=== PATIENT | female | born 1990 | race Caucasian/White ===

== ENCOUNTER → 2020-04-07 | Outpatient (CLI) | payer OTHER ==
--- NOTE | 2020-04-07 13:13 | XR ---
EXAMINATION TYPE: XR chest 2V DATE OF EXAM: 04/07/2020 COMPARISON: NONE HISTORY: Asthma and nicotine dependence. Shortness of breath. TECHNIQUE: Frontal and lateral views of the chest are obtained. FINDINGS: There is no focal air space opacity, pleural effusion, or pneumothorax seen. The cardiac silhouette size is within normal limits. The osseous structures are intact. IMPRESSION: No acute cardiopulmonary process.
== END | disposition home or self-care (01) ==
LOC: RADXRMAIN 12:54
PROVIDERS: ATTEND Internal Medicine Pulmonary Disease
DX: J45.909 Unspecified asthma, uncomplicated (principal); F17.210 Nicotine dependence, cigarettes, uncomplicated
CPT/HCPCS: 71046

== ENCOUNTER 2024-05-14 13:59 | Emergency (ER) | payer OTHER ==
--- NOTE | 2024-05-14 14:48 | ED ---
Back Pain HPI - General Source: patient, RN notes reviewed Limitations: no limitations <Nel Callejas - Last Filed: 05/14/24 14:47> - General Source: RN notes reviewed <Tessa Espinoza - Last Filed: 05/14/24 16:57> - General Chief Complaint: Back Pain/Injury Stated Complaint: L hip/back/leg pain Time Seen by Provider: 05/14/24 14:48 - History of Present Illness Initial Comments: Quick note: 33-year-old female presented to ER with a chief complaint of left- sided back pain. She states last night she started to experience a sharp/stabbing consistent pain. She does report radiation to her left lower extremity. No known injuries or traumas. (Nel Callejas) 33-year-old female presenting to the ER with chief complaint of low back pain x 3 days. Patient describes pain as crampy pain in the middle of the lower back that radiates to the left back and down her leg. Denies trauma or injuries. Denies bowel or bladder disturbances. Denies chance of . Denies IV drug use. Denies fevers, chills, vomiting. She has never had this before. She has been taking ibuprofen at home with little relief. She is having pain with weightbearing. (Tessa Espinoza) - Related Data Previous Rx's Medication Instructions Recorded Lidocaine 5% Patch [Lidoderm 5% 1 patch TOPICAL DAILY 7 Days #7 05/14/24 Patch] patch Allergies Allergy/AdvReac Type Severity Reaction Status Date / Time No Known Allergies Allergy Verified 05/14/24 14:03 Review of Systems ROS Other: All systems not noted in ROS Statement are negative. <Nel Callejas - Last Filed: 05/14/24 14:47> ROS Other: All systems not noted in ROS Statement are negative. <Tessa Espinoza - Last Filed: 05/14/24 16:57> ROS Statement: Those systems with pertinent positive or pertinent negative responses have been documented in the HPI. Past Medical History Past Medical History: Asthma History of Any Multi-Drug Resistant Organisms: None Reported Past Surgical History: Adenoidectomy, Tonsillectomy Past Psychological History: No Psychological Hx Reported Smoking Status: Current every day smoker Past Alcohol Use History: Occasional Past Drug Use History: Marijuana <Nel Callejas - Last Filed: 05/14/24 14:47> General Exam Limitations: no limitations <Nel Callejas - Last Filed: 05/14/24 14:47> General appearance: alert, in no apparent distress Head exam: Present: atraumatic, normocephalic, normal inspection GI/Abdominal exam: Present: soft, normal bowel sounds. Absent: distended, tenderness, guarding, rebound, rigid Back exam: Present: normal inspection, full ROM, tenderness (Left-sided paraspinal tenderness in lumbar portion of spine), other (Full range of motion and strength in bilateral hips. Pain with left-sided flexion of hip. No saddle anesthesia. Full sensation and DP pulses bilaterally). Absent: CVA tenderness (R), CVA tenderness (L), rash noted Neurological exam: Present: alert, oriented X3 Psychiatric exam: Present: normal affect, normal mood Skin exam: Present: warm, dry, intact, normal color. Absent: rash <Tessa Espinoza - Last Filed: 05/14/24 16:57> - General Exam Comments Initial Comments: Visual Physical Exam Vital signs reviewed General: Well-appearing, nontoxic, no acute distress. Head: Normocephalic, atraumatic Eyes: PERRLA, EOMI ENT: Airway patent Chest: Nonlabored breathing Skin: No visual rash, normal skin tone Neuro: Alert and oriented 3 Musculoskeletal: No gross abnormalities (Nel Callejas) Course Vital Signs 05/14/24 14:01 Temperature 97.9 F Pulse Rate 96 Respiratory 20 Rate Blood Pressure 125/80 O2 Sat by Pulse 96 Oximetry Medical Decision Making <Nel Callejas - Last Filed: 05/14/24 14:47> <Tessa Espinoza - Last Filed: 05/14/24 16:57> - Medical Decision Making I performed the quick note portion of this chart. Electronically signed by Nel Callejas PA-C (Nel Callejas) Was pt. sent in by a medical professional or institution (HALIMA Mcmanus, SENIOR MICROSTRATEGY DEVELOPER, urgent care, hospital, or fpc...) When possible be specific @ -No Did you speak to anyone other than the patient for history (EMS, parent, family, police, friend...)? What history was obtained from this source @ -No Did you review nursing and triage notes (agree or disagree)? Why? @ -I reviewed and agree with nursing and triage notes Were old charts reviewed (outside hosp., previous admission, EMS record, old EKG, old radiological studies, urgent care reports/EKG's, fpc records)? Report findings @ -No old charts were reviewed Differential Diagnosis (chest pain, altered mental status, abdominal pain women, abdominal pain men, vaginal bleeding, weakness, fever, dyspnea, syncope, headache, dizziness, GI bleed, back pain, seizure, CVA, palpatations, mental health, musculoskeletal)? @ -Differential Musculoskeletal Muscular strain, contusion, ligament sprain, fracture, arthritis, septic arthritis, bursitis, cellulitis, muscle spasm, nerve compression, DVT, arterial occlusion, herpes zoster, electrolyte abnormality, tumor.... This is not meant to be in all inclusive list EKG interpreted by me (3pts min.). @ -None X-rays interpreted by me (1pt min.). @ -X-ray lumbar spine reveals no acute process, dextrocurvature lumbar spine CT interpreted by me (1pt min.). @ -None done U/S interpreted by me (1pt. min.). @ -None done What testing was considered but not performed or refused? (CT, X-rays, U/S, labs)? Why? @ -None What meds were considered but not given or refused? Why? @ -None Did you discuss the management of the patient with other professionals (professionals i.e. , PA, SENIOR MICROSTRATEGY DEVELOPER, lab, RT, psych nurse, social organization professor, flight crew time clerk, t eacher, correctional security officer, family caseworker)? Give summary @ -No Was smoking cessation discussed for >3mins.? @ -No Was critical care preformed (if so, how long)? @ -No Were there social determinants of health that impacted care today? How? (Homelessness, low income, unemployed, alcoholism, drug addiction, transportation, low edu. Level, literacy, decrease access to med. care, detention, rehab)? @ -No Was there de-escalation of care discussed even if they declined (Discuss DNR or withdrawal of care, Hospice)? DNR status @ -No What co-morbidities impacted this encounter? (DM, HTN, Smoking, COPD, CAD, Cance r, CVA, ARF, Chemo, Hep., AIDS, mental health diagnosis, sleep apnea, morbid obesity)? @ -None Was patient admitted / discharged? Hospital course, mention meds given and route, prescriptions, significant lab abnormalities, going to OR and other pertinent info. @ -Patient was discharged. This is a 33-year-old female presenting with left- sided low back pain with radiation down left leg. Denies trauma or injury. No red flag symptoms to raise suspicion of cauda equina. Vital signs within normal limits. Neurovascularly intact. Patient was provided with IV and oral analgesics. X-ray revealed no acute process, dextrocurvature lumbar spine. Discussed findings with patient. I suspect symptoms are due to sciatica at this time. Prescribed lidocaine patches and supportive care discussed. Return precautions were discussed and patient is agreeable to plan. Case was discussed with my ED attending Dr. Kruger. Patient discharged in stable condition. Undiagnosed new problem with uncertain prognosis? @ -No Drug Therapy requiring intensive monitoring for toxicity (Heparin, Nitro, Insulin, Cardizem)? @ -No Were any procedures done? @ -No Diagnosis/symptom? @ -Sciatica of left side Acute, or Chronic, or Acute on Chronic? @ -Acute Uncomplicated (without systemic symptoms) or Complicated (systemic symptoms)? @ -Uncomplicated Side effects of treatment? @ -No Exacerbation, Progression, or Severe Exacerbation? @ -No Poses a threat to life or bodily function? How? (Chest pain, [place], [place], pneumonia, PE, COPD, DKA, ARF, appy, cholecystitis, CVA, Diverticulitis, Homicidal, Suicidal, threat to staff... and all critical care pts) @ -No (Tessa Espinoza) Disposition <Nel Callejas - Last Filed: 05/14/24 14:47> Is patient prescribed a controlled substance at d/c from ED?: No Time of Disposition: 16:42 <Tessa Espinoza - Last Filed: 05/14/24 16:57> Clinical Impression: Sciatica of left side Disposition: HOME SELF-CARE Condition: Stable Instructions (If sedation given, give patient instructions): Acute Low Back Pain (ED) Additional Instructions: Use lidocaine patches as needed for pain. Please return to the Emergency Department if symptoms worsen or any other concerns. Prescriptions: Lidocaine 5% Patch [Lidoderm 5% Patch] 1 patch TOPICAL DAILY 7 Days #7 patch Referrals: Nonstaff,Physician [REFERRING] - 1-2 days
--- NOTE | 2024-05-14 15:21 | XR ---
EXAMINATION TYPE: XR lumbar spine 2 or 3V DATE OF EXAM: 05/14/2024 CLINICAL HISTORY: A sided pain TECHNIQUE: Frontal and lateral views of the lumbar spine were submitted. COMPARISON: None. FINDINGS: There are 6 lumbar type vertebral bodies identified. No acute fracture. No spondylolisthesis. Dextroc urvature of the lumbar spine with apex at L5. Straightening of the normal lumbar lordosis. Vertebral body heights are within normal limits. Disc spaces are within normal limits. The overlying soft ti ssue appears unremarkable. IMPRESSION: 1. No acute fracture. 2. Dextrocurvature of the lumbar spine. [facility], , 05/14/2024 3:19 PM
[2024-05-14] MEDS: KETOROLAC 15 MG/ML 1 ML VIAL IM STA (16:26)
[2024-05-14] MEDS: CYCLOBENZAPRINE 10 MG TAB PO STA (16:26)
[2024-05-14] MEDS: MORPHINE SULFATE 4 MG/ML SYRINGE IM STA (16:27)
[2024-05-14 17:05] VITALS: BP 128/87; PULSE 86; RESP 18; TEMP 98
== END 2024-05-14 17:15 | disposition home or self-care (01) ==
LOC: EC 13:59
CPT/HCPCS: 72100; 96372; 99283